=== PATIENT | female | born 1970 | race Caucasian/White ===

== ENCOUNTER 2023-04-03 01:01 | Emergency (ER) | payer BC, OTHER, SELFPAY ==
[2023-04-03 01:18] VITALS: BP 122/86; PULSE 87; RESP 18; TEMP 36.8; O2SAT 96
--- NOTE | 2023-04-03 01:27 | ED.GENADUL_ITS ---
Discharge Plan Disposition Patient Disposition: Home Condition: Good Discharge Details Clinical Impression: Tick bite Primary Care Provider: Yoly,Local ED Provider: Jimmy Guzman Home Meds and New Rx's Prescriptions: New cephalexin 500 mg capsule 500 mg PO Q6H 7 Days Qty: 28 0RF Discharge Instructions Instructions: Tick Bite (ED) HPI General Date/Time Provider Initiated Documentation: 04/03/23 01:27 . HPI Narrative: 52 year old female presents to the ED with c/o tick on her back. She says that her pulled it off, but only part of it came out. Unknown how long it had been there. He pulled it off 2 days ago, and she took 200 mg Doxy twice already, but is concerned about part of tick still in her skin. NO fever/chills. NO known rash. Related Data Home Medications Medication Instructions Recorded Confirmed cephalexin 500 mg capsule 500 mg PO Q6H 7 days #28 caps 04/03/23 Previous Rx's Medication Instructions Recorded cephalexin 500 mg capsule 500 mg PO Q6H 7 days #28 caps 04/03/23 Allergies Allergy/AdvReac Type Severity Reaction Status Date / Time azithromycin [From Zithromax] AdvReac Nausea Unverified 04/03/23 01:30 cefaclor [From Ceclor] AdvReac Nausea Unverified 04/03/23 01:30 General Stated Complaint: InsectBite TREMAINE: 4 Review of Systems Narrative: CONST: no fever or chills HEENT: no sore throat SKIN: no rashes PULM: no sob, no cough CARD: no cp, no palpitations ABD: no abd pain EXTR: no swelling NEURO: No focal weakness PFSH All Active Problems (Updated 04/03/23 @ 01:35 by Jimmy Guzman MD) Tick bite (Acute) Social History Smoking/Tobacco Use Status: Current every day Tobacco Type: cigarettes Smoking risk assessment performed?: Yes Alcohol Intake: current Alcohol Intake frequency: holidays/special occasions only Drug use: Never Substance use type: does not use Exam Narrative Exam Narrative: Const: well appearing, no acute distress Ext: well perfused Neuro: non-focal Skin: no rashes. Mid back there is small red raised area with black central portion, ~1-2 mm. Course 52 yo female with prior tick embedded in her back, attempted removal by unsuccessful and retained portion. Discussed with pt that recommendations are not to dig after tick head in general because of increased risk of infection, but she would like to attempt. Reevaluation(s) Initial Evaluation: 18g needle used to unroof area and small jose guadalupe of black removed, presumptively part of tick. Discussed with pt that needs to watch for infection, as well as signs erythema migrans. Vital Signs Vital signs: Respiratory Effort Normal 04/03/23 01:24 Oxygen Delivery Method Room Air 04/03/23 01:18 Oxygen Flow Rate 0 04/03/23 01:18
[2023-04-04 09:46] LABS: Lyme Ab w Rflx to Lyme Confirm Negative (Negative)
[2023-04-06 17:09] LABS: Anaplasma phagocytophilum Negative (Negative); B. miyamotoi PCR Negative (Negative); Babesia divergens/MO-1 Negative (Negative); Babesia duncani Negative (Negative); Babesia microti Negative (Negative); Ehrlichia chaffeensis Negative (Negative); Ehrlichia ewingii/canis Negative (Negative); Ehrlichia muris eauclairensis Negative (Negative)
== END 2023-04-03 01:54 | disposition home or self-care (01) ==
PROVIDERS: Emergency Provider Emergency Medicine; PCP Nurse Practitioner Family
DX: S20.469A Insect bite (nonvenomous) of unspecified back wall of thorax, initial encounter (principal); W57.XXXA Bitten or stung by nonvenomous insect and other nonvenomous arthropods, initial encounter
CPT/HCPCS: 87798; 99282; 86618; 99283